=== PATIENT | female | born 1955 | race Caucasian/White ===

== ENCOUNTER 2017-03-31 05:56 | Day surgery (SDC) | payer OTHER ==
[2017-03-31] MEDS ORDERED: THROMBIN 5000 UNIT VIAL (07:18)
[2017-03-31] MEDS ORDERED: GELATIN SIZE 100 SPONGE (07:18)
[2017-03-31] MEDS ORDERED: ROCURONIUM 50 MG INJ (07:33)
[2017-03-31] MEDS ORDERED: ONDANSETRON 4 MG INJ (07:33)
[2017-03-31] MEDS ORDERED: MIDAZOLAM 1 MG/ML 2 ML INJ (07:33)
[2017-03-31] MEDS ORDERED: PROPOFOL 20 ML ×2 (07:33→09:39)
[2017-03-31] MEDS ORDERED: ROPIVACAINE 0.2% 20 ML VIAL (07:33)
[2017-03-31] MEDS ORDERED: METOCLOPRAMIDE 10 MG INJ (07:38)
[2017-03-31] MEDS ORDERED: KETOROLAC 30 MG INJ (07:58)
[2017-03-31] MEDS ORDERED: CEFAZOLIN 1 GM INJ (07:58)
[2017-03-31] MEDS ORDERED: LABETALOL HCL 20MG INJ IV (08:30)
[2017-03-31] MEDS ORDERED: HYDROmorphONE (0.2 MG/ML) 10ML SYG IV (08:30)
[2017-03-31] MEDS ORDERED: hydrALAzine 20 MG INJ IV (08:30)
[2017-03-31] MEDS ORDERED: OXYCODONE/ACETAMINOPHEN (5/325) TAB PO (08:30)
[2017-03-31] MEDS: BUPIVACAINE 0.5%/EPI (SDV) 30 ML INJ (08:46)
[2017-03-31] MEDS ORDERED: METOPROLOL 5 MG INJ (09:39)
[2017-03-31] MEDS ORDERED: NEOSTIGMINE 3 MG/3 ML SYRINGE (10:42)
[2017-03-31] MEDS: EPINEPHrine 1 MG/ML 30 ML INJ IRR (11:07)
[2017-03-31] MEDS: POLYMYXIN/BACITRACIN 1L IRRIG (11:07)
[2017-03-31] MEDS: morphine SULFATE/PF (10 MG/10 ML) INJ (11:07)
[2017-03-31] MEDS: ONDANSETRON 4 MG INJ IV (11:09)
[2017-03-31] MEDS: HYDROmorphONE (0.2 MG/ML) 10ML SYG IV ×3 (11:09→11:46)
[2017-03-31] MEDS: MEPERIDINE 25 MG INJ IV (11:10)
[2017-03-31] MEDS: DIPHENHYDRAMINE 50 MG INJ IV (11:28)
[2017-03-31] MEDS: OXYCODONE/ACETAMINOPHEN (5/325) TAB PO (12:37)
[2017-03-31] MEDS: FAMOTIDINE 20 MG INJ IV (13:07)
== END 2017-03-31 14:30 | disposition home or self-care (01) ==
LOC: SDS 05:56
DX: M75.102 Unspecified rotator cuff tear or rupture of left shoulder, not specified as traumatic (principal); S43.432A Superior glenoid labrum lesion of left shoulder, initial encounter; X58.XXXA Exposure to other specified factors, initial encounter
CPT/HCPCS: 29807